=== PATIENT | male | born 1955 | race Caucasian/White ===

== ENCOUNTER 2016-10-05 08:00 | Day surgery (SDC) | payer OTHER ==
[~2016-10-05] VITALS: Ht 177.8 cm; Wt 103.0 kg
[~2016-10-05 08:00] MED LIST: ASPI-973 PO; ATOR20TA PO; LISI2.5T PO; Sodium Chloride LOK Flush 10 mL Syringe IV PRN; fentaNYL-PF 50 mCg/mL 2 mL Inj IVPUSH PRN
[2016-10-05 08:14] VITALS: BP 134/80; PULSE 52; RESP 12; O2SAT 96
[2016-10-05] MEDS ORDERED: 0.9% Sodium Chloride 1,000 ML ONE (08:18)
[2016-10-05 08:49] VITALS: BP 123/74; PULSE 57; RESP 14; O2SAT 95
[2016-10-05 08:58] VITALS: BP 143/89; PULSE 55; RESP 15; O2SAT 94
[2016-10-05 09:08] VITALS: BP 143/89; PULSE 50; RESP 15; O2SAT 92
--- NOTE | 2016-10-05 11:37 | ENDO ---
[address] [address] ENDOSCOPY PROCEDURE PATIENT: BRIAN SUÁREZ : 1955 MR#: [id number] ADMIT: 10/05/2016 JOB ID: [id number] DATE OF SERVICE: 10/05/2016 TITLE OF OPERATION: Colonoscopy. PREOPERATIVE DIAGNOSIS(ES): Family history of colon cancer. POSTOPERATIVE DIAGNOSIS(ES): Small internal hemorrhoids. ANESTHESIA: Fentanyl 100 mcg and Versed 4 mg IV administered. COMPLICATIONS: None. BLOOD LOSS: Minimal. DESCRIPTION OF PROCEDURE: After risks and benefits explained to the patient, informed consent was obtained. After anesthesia administered, colonoscope was then inserted per rectum to the cecum and mucosa carefully examined. Prep of the patient was excellent. After procedure was done, the scope withdrawn and the procedure terminated. FINDINGS: Upon inspection of the anus, no masses, hemorrhoids, ulcers, fissures that were seen. Throughout the entire examination, no polyps, masses, or lesions. Retroflexion showed small internal hemorrhoids. IMPRESSION: Small internal hemorrhoids. RECOMMENDATIONS: Stool softeners. Need to repeat colonoscopy in five years, given family history of colon cancer.
== END 2016-10-05 23:59 | disposition home or self-care (01) ==
LOC: END 08:00
PROVIDERS: ATTEND Internal Medicine Gastroenterology
DX: Z12.11 Encounter for screening for malignant neoplasm of colon (principal); Z86.010 Personal history of colon polyps; Z80.0 Family history of malignant neoplasm of digestive organs; K64.8 Other hemorrhoids; Z79.82 Long term (current) use of aspirin
CPT/HCPCS: G0105; G0500; J2250; J3010; J7030